=== PATIENT | male | born 2000 | race Caucasian/White ===

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

== ENCOUNTER 2020-02-27 14:06 | Outpatient (CLI) | payer MEDICAID, OTHER | END 2020-02-27 23:59 | disposition home or self-care (01) | LOC: CARD 14:06 | PROVIDERS: ATTEND Family Medicine | DX: R06.00 Dyspnea, unspecified (principal) | CPT/HCPCS: 94060; 94726; 94729 ==